=== PATIENT | female | born 1985 | race Hispanic/Latino ===

== ENCOUNTER 2020-10-07 13:51 | Inpatient (IN) | payer OTHER, SELFPAY ==
[~2020-10-07] VITALS: Ht 154.9 cm; Wt 86.4 kg
[2020-10-07] MEDS ORDERED: ACETAMINOPHEN 500 MG TABLET ONE (14:08)
[2020-10-07 14:21] LABS: APPEARANCE,URINE Clear (CLEAR); BILIRUBIN,URINE Negative (NEGATIVE); COLOR,URINE Yellow (YELLOW); GLUCOSE, URINE (UA) 500 mg/dL (NEGATIVE); KETONES,URINE Trace mg/dL (NEGATIVE); LEUKOCYTE ESTERASE ,URINE Negative (NEGATIVE); NITRATE,URINE Negative (NEGATIVE); OCCULT BLOOD,URINE Negative (NEGATIVE); PROTEIN,URINE Negative (NEGATIVE); UROBILINOGEN,URINE 0.2 mg/dL (0.2-1.0)
[2020-10-07 14:24] LABS: HCG,QUAL RESULT NEGATIVE (NEGATIVE)
[2020-10-07 14:40] LABS: BASOPHILS % (AUTO) 0.5 % (0.0-5.0); EOSINOPHILS % (AUTO) 1.8 % (0.0-8.0); HEMATOCRIT 43.7 % (36-48); MEAN CORPUSCULAR HEMOGLOBIN 30.4 pg (27.0-33.0); MEAN CORPUSCULAR HGB CONC 34.1 g/dL (32.0-36.0); MEAN CORPUSCULAR VOLUME 89.2 fL (79-99); MONOCYTES % (AUTO) 5.1 % (3.0-13.0); NEUTROPHILS % (AUTO) 68.6 % (40.0-77.0); PLATELET COUNT (AUTO) 151 K/uL (130-400)
[2020-10-07 14:48] LABS: POTASSIUM 4.3 mmol/L (3.5-5.1)
[2020-10-07 14:50] LABS: BACTERIA,URINE Rare /HPF (None Seen); RBC,URINE 0-1 /HPF (0-1)
[2020-10-07 14:51] LABS: MUCUS,URINE Few LPF (None Seen); SQUAMOUS EPITHELIAL CELL,UR Few /HPF (0-2)
[2020-10-07 14:54] LABS: INR 0.96 (0.85-1.15); PARTIAL THROMBOPLASTIN TIME 20.5 SEC (26.3-35.5)
[2020-10-07 14:58] LABS: ALBUMIN 3.4 g/dL (3.5-5.0); BILIRUBIN,TOTAL 0.4 mg/dL (0.2-1.0); TOTAL PROTEIN, SERUM 8.6 g/dL (6.0-8.3)
[2020-10-07 15:08] LABS: B-TYPE NATRIURETIC PEPTIDE 88 pg/mL (0-100)
[2020-10-07] MEDS ORDERED: AZITHROMYCIN 250 MG TABLET PO ONE (15:23)
[2020-10-07] MEDS ORDERED: CEFTRIAXONE 1G VIAL ONE (15:23)
[2020-10-07] MEDS ORDERED: 0.9%NACL 100ML 100 ML IV ONE (15:24)
[2020-10-07] MEDS ORDERED: 0.9%NACL 1000ML 1,000 ML IV ONE ×2 (16:17→17:56)
[2020-10-07] MEDS ORDERED: LACTULOSE 20 GM/30 ML UDCUP PO PRN (17:15)
[2020-10-07] MEDS: 0.9%NACL 1000ML 1,000 ML IV SCH (17:15)
[2020-10-07] MEDS ORDERED: ONDANSETRON 4MG INJ IV PRN (17:15)
[2020-10-07] MEDS ORDERED: ACETAMINOPHEN 325 MG TAB PO PRN (17:15)
[2020-10-07] MEDS: AZITHROMYCIN 500MG+NS 250ML 250 ML IV SCH (17:15)
[2020-10-07 17:34] LABS: ABG BASE EXCESS -2.4 mmol/L (-2.0-3.0); ABG HCO3 21.6 mmol/L (21.0-28.0); ABG OXYGEN SATURATION 93.3 % (95.0-99.0); ABG PCO2 35 mmHg (32-45)
[2020-10-07] MEDS: FAMOTIDINE 20MG VIAL IV SCH (21:00)
[2020-10-07] MEDS: CEFTRIAXONE 1G VIAL IV SCH (21:00)
[2020-10-07 21:25] VITALS: BP 128/72
[2020-10-07 23:22] VITALS: BP 122/84
[2020-10-08] MEDS ORDERED: TEMAZEPAM 15 MG CAPSULE PO ONE (00:45)
[2020-10-08] MEDS: 0.9%NACL 1000ML 1,000 ML IV SCH (01:15)
[2020-10-08 03:34] VITALS: BP 100/61
[2020-10-08 05:40] LABS: BASOPHILS % (AUTO) 0.2 % (0.0-5.0); EOSINOPHILS % (AUTO) 0.2 % (0.0-8.0); HEMATOCRIT 35.9 % (36-48); MEAN CORPUSCULAR HEMOGLOBIN 29.8 pg (27.0-33.0); MEAN CORPUSCULAR HGB CONC 33.7 g/dL (32.0-36.0); MEAN CORPUSCULAR VOLUME 88.4 fL (79-99); MONOCYTES % (AUTO) 8.7 % (3.0-13.0); NEUTROPHILS % (AUTO) 58.4 % (40.0-77.0); PLATELET COUNT (AUTO) 252 K/uL (130-400); RED BLOOD CELL COUNT(AUTO) 4.06 MIL/uL (4.00-5.50); WHITE BLOOD COUNT (AUTO) 5.7 K/uL (4.8-10.8)
[2020-10-08 05:55] LABS: ALBUMIN 2.9 g/dL (3.5-5.0); BILIRUBIN,TOTAL 0.3 mg/dL (0.2-1.0); CREATININE 0.6 mg/dL (0.5-1.5)
[2020-10-08 08:39] VITALS: BP 111/70
[2020-10-08] MEDS: FAMOTIDINE 20MG VIAL IV SCH ×2 (11:57→23:04)
[2020-10-08] MEDS: CEFTRIAXONE 1G VIAL IV SCH ×2 (11:57→23:04)
[2020-10-08] MEDS: ENOXAPARIN SODIUM 40 MG/0.4 ML SYRINGE SQ SCH (11:59)
[2020-10-08 12:57] VITALS: BP 117/75
[2020-10-08] MEDS: AZITHROMYCIN 500MG+NS 250ML 250 ML IV SCH (17:50)
[2020-10-08 20:00] VITALS: BP 111/68
[2020-10-08] MEDS: ACETAMINOPHEN 325 MG TAB PO PRN (23:03)
[2020-10-09] VITALS: BP 123/83
[2020-10-09 04:00] VITALS: BP 122/68
[2020-10-09 05:16] LABS: BASOPHILS % (AUTO) 0.7 % (0.0-5.0); EOSINOPHILS % (AUTO) 0.7 % (0.0-8.0); LYMPHOCYTES % (AUTO) 56.2 % (21.0-51.0); MEAN CORPUSCULAR HEMOGLOBIN 30.1 pg (27.0-33.0); MEAN CORPUSCULAR HGB CONC 34.1 g/dL (32.0-36.0); MEAN CORPUSCULAR VOLUME 88.5 fL (79-99); MONOCYTES % (AUTO) 10.9 % (3.0-13.0); NEUTROPHILS % (AUTO) 30.8 % (40.0-77.0); PLATELET COUNT (AUTO) 290 K/uL (130-400); RED BLOOD CELL COUNT(AUTO) 4.18 MIL/uL (4.00-5.50); RED CELL DISTRIBUTION WIDTH 12.2 % (11.0-15.5)
[2020-10-09 05:28] LABS: CREATININE 0.8 mg/dL (0.5-1.5); POTASSIUM 3.6 mmol/L (3.5-5.1)
[2020-10-09 08:37] VITALS: BP 106/72
[2020-10-09] MEDS: CEFTRIAXONE 1G VIAL IV SCH (10:41)
[2020-10-09] MEDS: FAMOTIDINE 20MG VIAL IV SCH (10:41)
[2020-10-09] MEDS: ENOXAPARIN SODIUM 40 MG/0.4 ML SYRINGE SQ SCH (10:42)
[2020-10-09] MEDS: ACETAMINOPHEN 325 MG TAB PO PRN (11:14)
[2020-10-09] MEDS ORDERED: AMOX-426 PO (11:40)
[2020-10-09 14:12] VITALS: BP 110/69
[2020-10-09] MEDS ORDERED: ASPIRIN 81MG CHEW TAB PO SCH (14:45)
[2020-10-09] MEDS ORDERED: ASPI-1197 PO (15:48)
[2020-10-10] MEDS ORDERED: ASPIRIN 81MG CHEW TAB PO SCH (09:00)
== END 2020-10-09 18:00 | disposition home or self-care (01) | DRG 177 ==
LOC: EDH 13:51 → EDHIP 13:52 → 3DH 20:20
PROVIDERS: ADMIT Internal Medicine; ATTEND Internal Medicine
DX: U07.1 COVID-19 (principal); J18.9 Pneumonia, unspecified organism; E87.2 Acidosis; R09.02 Hypoxemia; R74.02 Elevation of levels of lactic acid dehydrogenase [LDH]
CPT/HCPCS: 36415; 36600; 71045; 80048; 80053; 81001; 81025; 82550; 82803; 83605; 83880; 84145; 84484; 85025; 85378; 85610; 85730; 86140; 87040; 87071; 87205; 87426; 87804; 87807; 87880; 93005; G0378; J0456; J0696; J1650; J3490; J7030; U0003